=== PATIENT | female | born 1990 | race Caucasian/White ===

== ENCOUNTER 2017-04-20 16:15 | Emergency (ER) | payer BC, MEDICAID ==
--- NOTE | 2017-04-20 17:26 | PD ---
HPI Chief Complaint With urethral stone Date Seen: Apr 20, 2017 Time Seen: 17:23 Travel History International Travel<30 Days: No Contact w/Intl Traveler<30Days: No Known Affected Area: No History of Present Illness HPI 26-year-old who is at 31 weeks and 6 days comes in today because she passed a small stone about an hour ago. Patient is completely asymptomatic, no pain, no dysuria, no hematuria who about 2 hours ago after urinating wiped and saw a small stone that had been passed per urethra. 2 days ago patient experienced some mild dysuria and pelvic pressure and started on Macrobid which she had for a previous urinary tract infection this . The symptoms have now abated. Patient has no history of nephrolithiasis in the past and no family history that she knows of Weeks Gestation: 31 Para: 0 : 1 History Past Medical History Medical History: Denies Significant Hx Past Surgical History Surgical History: No Previous Surgery Family History Family History: Negative Social History Alcohol Use: No Tobacco Use: No Substance Abuse: No Allergies-Medications (Allergen,Severity, Reaction): Coded Allergies: No Known Allergies (Unverified , 10/20/16) Home Meds Active Scripts W/O Vit A W/ Fe Fumar (Citranatal [place]) 27-1-260 Mg Cap Prov:Todd Cárdenas MD 10/20/16 Review of Systems Except as stated in HPI: all other systems reviewed are Neg Physical Exam Narrative GENERAL: Well-nourished, well-developed patient. SKIN: Warm and dry. HEAD: Normocephalic and atraumatic. EYES: No scleral icterus. No injection or drainage. ENT: No nasal drainage noted. Mucous membranes pink. Airway patent. NECK: Supple, trachea midline. No JVD. CARDIOVASCULAR: Regular rate and rhythm without murmurs, gallops, or rubs. RESPIRATORY: Breath sounds equal bilaterally. No accessory muscle use. ABDOMEN/GI: Abdomen soft, non-tender, bowel sounds present, no rebound, no guarding Gravid to [32-] weeks size Fundal Height: [-] GENITOURINARY: External Genitalia: intact and normal in appearance BUS glands: [Normal-] urethra appears normal without trauma Cervix: [-] Cervical exam was deferred Dilatation: [-] Effacement: [-] Station: [-] Presentation: [-] Membranes: [intact or ruptured] Uterine Contractions: [-Absent] FHT's: Category: [-1] Baseline: [-140] Reactive: [Moderate-] Variability: [-Moderate] Decels: [Absent-] EXTREMITIES: No cyanosis or edema. BACK: Nontender without obvious deformity. No CVA tenderness. NEUROLOGICAL: Awake and alert. Motor and sensory grossly within normal limits. Five out of 5 muscle strength in all muscle groups. Normal speech. Data Data Vital Signs Reviewed: Yes Orders Orders Vital Signs (Adult) .ON ADMISSION (04/20/17 17:22) ^ Labor Status (04/20/17 17:22) Urinalysis - C+S If Indicated (04/20/17 17:22) Diet Liquid (04/20/17 Dinner) Labs Laboratory Tests Test 04/20/17 17:00 Urine Color YELLOW Urine Turbidity CLEAR Urine pH 6.0 Urine Specific [place] 1.018 Urine Protein TRACE mg/dL Urine Glucose (UA) NEG mg/dL Urine Ketones 80 mg/dL Urine Occult Blood NEG Urine Nitrite NEG Urine Bilirubin NEG Urine Urobilinogen LESS THAN 2.0 MG/DL Urine Leukocyte Esterase SMALL Urine RBC 2 /hpf Urine WBC 3 /hpf Urine Squamous Epithelial Cells 2 /hpf Urine Bacteria RARE /hpf Urine Mucus FEW /lpf Microscopic Urinalysis Comment CULT NOT INDICATED MDM Medical Record Reviewed: Yes Plan 26-year-old at 31 weeks 6 days with probable passage of a kidney stone, totally asymptomatic Urinalysis was normal patient will continue on her Macrobid for 1 additional day This stone was sent for pathology, follow-up with her OB provider as appointed tomorrow Diagnosis Diagnosis: Primary Impression: 31 weeks gestation of Additional Impressions: History of calculus of kidney during Pain in urethral meatus Disposition: 01 DISCHARGE HOME Pat East MD Apr 20, 2017 17:26
[2017-04-20 17:36] LABS: BACTERIA, URINE RARE /hpf; BLOOD, URINE NEG (NEG); COMMENT (UR) CULT NOT INDICATED; CULTURE IF INDICATED CULT NOT INDICATED; GLUCOSE,URINE NEG (NEG); KETONE, URINE 80 mg/dL (NEG); MUCUS URINE FEW /lpf (OCC); NITRITE,URINE NEG (NEG); SQUAMOUS EPITHELIAL CELL URINE 2 /hpf (0-5); URINE COLOR YELLOW (YELLW/STRAW)
== END 2017-04-20 18:30 | disposition home or self-care (01) ==
LOC: HOBED 16:15
DX: O26.893 Other specified pregnancy related conditions, third trimester (principal); R10.2 Pelvic and perineal pain; Z87.442 Personal history of urinary calculi; Z87.440 Personal history of urinary (tract) infections; Z3A.31 31 weeks gestation of pregnancy
CPT/HCPCS: 59025; 81001; 82365; 82370; 88300

== ENCOUNTER 2017-05-11 13:42 | Inpatient (IN) | payer BC, MEDICAID ==
[2017-05-11] VITALS (14 sets, daily range): BP systolic 114–165; BP diastolic 73–99; PULSE 73–169; RESP 18; TEMP 98–98.6
[~2017-05-11] VITALS: Ht 152.4 cm; Wt 86.0 kg
[2017-05-11] MEDS ORDERED: hydrALAZINE HCL 20 MG/ML VIAL IV PUSH PRN ×2 (14:45→15:15)
[2017-05-11] MEDS ORDERED: NIFEdipine 10 MG CAP PO PRN (14:45)
[2017-05-11] MEDS ORDERED: CALCIUM GLUCONATE 10% 1 GM/10 ML VIAL IV PUSH PRN (14:45)
[2017-05-11] MEDS ORDERED: ONDANSETRON HCL 4 MG/2 ML VIAL IV PUSH PRN (14:45)
[2017-05-11] MEDS ORDERED: SODIUM CHLORIDE 0.9% FLUSH 5 ML FLUSH IV FLUSH PRN (14:45)
[2017-05-11] MEDS ORDERED: ZOLPIDEM TARTRATE 5 MG TAB PO PRN (14:45)
[2017-05-11] MEDS ORDERED: NIFEdipine 10 MG CAP ONE (14:46)
[2017-05-11] MEDS ORDERED: MAGNESIUM HYDROXIDE SUSP 30 ML CUP PO PRN (15:00)
[2017-05-11] MEDS ORDERED: ALUMINUM/MAGNESIUM/SIMETH 30 ML CUP PO PRN (15:00)
--- NOTE | 2017-05-11 15:00 | HHI.HP ---
HPI Chief Complaint Hypertension measured as an outpatient, visual changes, headaches, midepigastric pain, and swelling Date Seen: May 11, 2017 Time Seen: 14:45 Travel History International Travel<30 Days: No Contact w/Intl Traveler<30Days: No Known Affected Area: No History of Present Illness HPI Patient is 26-year-old white female at 34 weeks and [address] Atkins who presents for evaluation of high blood pressure that she measured at the [facility] today was 180/117, she states she's had high blood pressure the last office visit. She has not been at bedrest. She is also had headaches and visual changes midepigastric pain over the last day or 2, she notes rather impressive swelling and feet and legs hands and face over the last several weeks , she denies pain of of contractions or leakage of fluid or bleeding. heart rate tracing is reactive and she is not leslee now Weeks Gestation: 34 Para: 0 : 1 History Social History Alcohol Use: No Tobacco Use: No Substance Abuse: No Allergies-Medications (Allergen,Severity, Reaction): Coded Allergies: No Known Allergies (Unverified , 10/20/16) Home Meds Active Scripts W/O Vit A W/ Fe Fumar (Citranatal [place]) 27-1-260 Mg Cap Prov:Todd Cárdenas MD 10/20/16 Review of Systems General / Constitutional: No: Fever, Weight Gain, Chills, Other Eyes: Blurred Vision, Visual changes, No: Diploplia, Pain, Photophobia HENT: Headaches, No: Vertigo, Lightheadedness Cardiovascular: Edema, No: Irregular Rhythm, Chest Pain or Discomfort, Palpitations, Tachycardia, Syncope, Varicosities, Cyanosis Respiratory: No: Cough, Short of Breath, Other Gastrointestinal: Nausea, Vomiting, Abdominal Pain, No: Diarrhea Genitourinary: No: Decreased Urinary Output, Oliguria Musculoskeletal: No: Limited ROM, Weakness, Cramping, Edema, Pain Skin: No Rash, No Itching, No Dryness, No Lumps, No Change in Pigmentation, No Change in Nails, No Alopecia, No Lesions Neurologic: No: Weakness, Dizziness, Syncope, Focal Abnormalities, Coordination Problem, Headache, Slurred Speech, Seizures Psychiatric: No: Depression, Suicidal Ideations, Homicidal Ideation Endocrine: No: Heat Intolerance, Cold Intolerance, Polydipsia, Polyuria, Other Physical Exam Narrative GENERAL: Well-nourished, well-developed patient. SKIN: Warm and dry. HEAD: Normocephalic and atraumatic. EYES: No scleral icterus. No injection or drainage. ENT: No nasal drainage noted. Mucous membranes pink. Airway patent. NECK: Supple, trachea midline. No JVD. CARDIOVASCULAR: Regular rate and rhythm without murmurs, gallops, or rubs. RESPIRATORY: Breath sounds equal bilaterally. No accessory muscle use. BREASTS: Bilateral exam showed no masses , no retractions, no nipple discharge. ABDOMEN/GI: Abdomen soft, non-tender, bowel sounds present, no rebound, no guarding Gravid to [-34] weeks size Fundal Height: [-34] GENITOURINARY: External Genitalia: intact and normal in appearance BUS glands: [-] Cervix: [Posterior-] Dilatation: [-0] Effacement: [0] Station: [-3] Membranes: [intact ] Uterine Contractions: [-0] FHT's: Category: [-1] Baseline: [-133] Reactive: [-yes] Variability: [-mod] Decels: [-0] EXTREMITIES: No cyanosi ,4+ edema.in preteibial area BACK: Nontender without obvious deformity. No CVA tenderness. NEUROLOGICAL: Awake and alert. Motor and sensory grossly within normal limits. Five out of 5 muscle strength in all muscle groups. Normal speech. 2+ DTRs Caprini VTE Risk Assessment Caprini VTE Risk Assessment: No/Low Risk (score <= 1) Caprini Risk Assessment Model Point Value = 1 Point Value = 2 Point Value = 3 Point Value = 5 Age 41-60 Minor surgery BMI > 25 kg/m2 Swollen legs Varicose veins or History of unexplained or recurrent spontaneous Oral contraceptives or hormone replacement Sepsis (< 1 month) Serious lung disease, including pneumonia (< 1 month) Abnormal pulmonary function Acute myocardial infarction Congestive heart failure (< 1 month) History of inflammatory bowel disease Medical patient at bed rest Age 61-74 Arthroscopic surgery Major open surgery (> 45 min) Laparoscopic surgery (> 45 min) Malignancy Confined to bed (> 72 hours) Immobilizing plaster cast Central venous access Age >= 75 History of VTE Family history of VTE Factor V Leiden Prothrombin [id number] Lupus anticoagulant Anticardiolipin antibodies Elevated serum homocysteine Heparin-induced thrombocytopenia Other congenital or acquired thrombophilia Stroke (< 1 month) Elective arthroplasty Hip, pelvis, or leg fracture Acute spinal cord injury (< 1 month) Prophylaxis Regimen Total Risk Factor Score Risk Level Prophylaxis Regimen 0-1 Low Early ambulation 2 Moderate Order ONE of the following: *Sequential Compression Device (SCD) *Heparin 5000 units SQ BID 3-4 Higher Order ONE of the following medications: *Heparin 5000 units SQ TID *Enoxaparin/Lovenox 40 mg SQ daily (WT < 150 kg, CrCl > 30 mL/min) *Enoxaparin/Lovenox 30 mg SQ daily (WT < 150 kg, CrCl > 10-29 mL/min) *Enoxaparin/Lovenox 30 mg SQ BID (WT < 150 kg, CrCl > 30 mL/min) AND/OR *Sequential Compression Device (SCD) 5 or more Highest Order ONE of the following medications: *Heparin 5000 units SQ TID (Preferred with Epidurals) *Enoxaparin/Lovenox 40 mg SQ daily (WT < 150 kg, CrCl > 30 mL/min) *Enoxaparin/Lovenox 30 mg SQ daily (WT < 150 kg, CrCl > 10-29 mL/min) *Enoxaparin/Lovenox 30 mg SQ BID (WT < 150 kg, CrCl > 30 mL/min) AND *Sequential Compression Device (SCD) Data Data Orders Orders Nifedipine (Procardia) (05/11/17 14:46) Admit To Inpatient (05/11/17 ) Vital Signs (Adult) Q5MX4,Q15MX4,Q30MX2,Q1H (05/11/17 14:42) Resp Pulse Oximetry (05/11/17 ) Activity Bed Rest (05/11/17 14:42) Intake + Output Q1H (05/11/17 14:42) Notify Parameters (05/11/17 14:42) Heart CONTINUOUS (05/11/17 14:42) Urinary Catheter Management JERO.Q8H (05/11/17 14:42) ^ Check Deep Tendon Reflexes Q1H (05/11/17 14:42) Sodium Chloride 0.9% Flush (Ns Flush) (05/11/17 14:45) Sodium Chloride 0.9% Flush (Ns Flush) (05/11/17 21:00) Nifedipine (Procardia) (05/11/17 14:45) Hydralazine Inj (Apresoline Inj) (05/11/17 14:45) Hydralazine Inj (Apresoline Inj) (05/11/17 15:15) Betamethasone Inj (Celestone Soluspan In (05/11/17 14:45) Calcium Gluconate Inj (Calcium Gluconate (05/11/17 14:45) Acetaminophen (Tylenol) (05/11/17 14:45) Ondansetron Inj (Zofran Inj) (05/11/17 14:45) Docusate Sodium (Colace) (05/11/17 14:45) Kiscpkrn-Pcs-Nsvmu-Iron Prenat (Stuartna (05/12/17 09:00) Zolpidem (Ambien) (05/11/17 14:45) Cbc No Diff, Includes Plts (05/11/17 14:42) Comprehensive Metabolic Panel (05/11/17 14:42) Uric Acid (05/11/17 14:42) Urinalysis - C+S If Indicated (05/11/17 14:42) Total Protein 24hr Urine (05/11/17 14:42) Creatinine 24 Hr Urine (05/11/17 14:42) Us Ob Bpp Wo Nst (05/11/17 14:42) Al-Mag Hy-Si 40-40-4 Mg/Ml Liq (Mag-Al P (05/11/17 15:00) Magnesium Hydroxide Liq (Milk Of Magnesi (05/11/17 15:00) Labs Urine dipstick showed 2-3+ proteinuria otherwise was negative Assessment/Plan Assessment and Plan 26-year-old white female at 35 weeks tomorrow [address] Dr. Atkins for care at [facility] who presents noting a blood pressure done at outside hospital [facility] of 180/117, she is also had the recent headache visual changes increase in her swelling and developed midepigastric pain she describes as a tightness. Her blood pressure in OB ED is 150 / 90s and 150/100 she has a reactive NST no contractions. She has 4+ pitting edema in the pretibial area, 2- 3+ proteinuria on urine dipstick , she describes visual changes sparkles and lights in her eyes recently also a persistent headache, and she probably try in the midepigastrium and epigastric area where she has this tightness pain Meuiaegodp-fiw-ekmqsusxs 34-35 weeks plan-admission the hospital, 24-hour urine protein collection check PIH lab, obstetric ultrasound, treat hypertension as needed, will notify Dr. Atkins of the patient's arrival Max Mosley II, MD May 11, 2017 15:00
[2017-05-11 16:03] LABS: BACTERIA, URINE RARE /hpf; BLOOD, URINE NEG (NEG); COMMENT (UR) CULT NOT INDICATED; CULTURE IF INDICATED CULT NOT INDICATED; GLUCOSE,URINE NEG (NEG); KETONE, URINE NEG (NEG); MUCUS URINE FEW /lpf (OCC); NITRITE,URINE NEG (NEG); SQUAMOUS EPITHELIAL CELL URINE 7 /hpf (0-5); URINE COLOR YELLOW (YELLW/STRAW)
[2017-05-11 16:40] LABS: HEMATOCRIT 36.3 % (35.0-46.0); MEAN CELL VOLUME 90.1 FL (80.0-100.0); MEAN CORPUSCULAR HEMOGLOBIN 30.5 PG (27.0-34.0); MEAN CORPUSCULAR HGB CONC 33.9 % (32.0-36.0); PLATELET COUNT 152 TH/MM3 (150-450); RED BLOOD COUNT 4.03 MIL/MM3 (4.00-5.30); RED CELL DISTRIBUTION WIDTH 12.7 % (11.6-17.2); REVIEW FLAG FINAL; WHITE BLOOD COUNT 8.9 TH/MM3 (4.0-11.0)
--- NOTE | 2017-05-11 16:58 | PD.OB.ANTE ---
Subjective Diagnosis: (1) induced hypertension, antepartum Diagnosis: Principal (2) Edema Diagnosis: Principal Interval History Pt feeling slightly better since admission, IVF hydration; headache mild, no vision changes, no RUQ pain, no nausea. Persistent b/l LE edema developed over past week. No contractions, feeling baby move, no LOF or VB. Pain 1/10 dull frontal headache. Antepartum ROS: Reports: movement normal, Denies: New complaints, Loss of fluid, Vaginal bleeding, Contractions, Other Objective Vital Signs Vital Signs Date Time Temp Pulse Resp B/P (MAP) Pulse Ox O2 Delivery O2 Flow Rate FiO2 05/11/17 15:47 91 142/88 (106) 05/11/17 14:44 73 165/92 (116) 05/11/17 14:42 78 164/99 (120) Lab & Micro Results Test 05/11/17 14:28 05/11/17 15:50 Urine Color YELLOW Urine Turbidity HAZY Urine pH 7.0 Urine Specific [place] 1.017 Urine Protein 100 mg/dL Urine Glucose (UA) NEG mg/dL Urine Ketones NEG mg/dL Urine Occult Blood NEG Urine Nitrite NEG Urine Bilirubin NEG Urine Urobilinogen LESS THAN 2.0 MG/DL Urine Leukocyte Esterase SMALL Urine RBC 2 /hpf Urine WBC 3 /hpf Urine Squamous Epithelial Cells 7 /hpf Urine Bacteria RARE /hpf Urine Mucus FEW /lpf Microscopic Urinalysis Comment CULT NOT INDICATED White Blood Count 8.9 TH/MM3 Red Blood Count 4.03 MIL/MM3 Hemoglobin 12.3 GM/DL Hematocrit 36.3 % Mean Corpuscular Volume 90.1 FL Mean Corpuscular Hemoglobin 30.5 PG Mean Corpuscular Hemoglobin Concent 33.9 % Red Cell Distribution Width 12.7 % Platelet Count 152 TH/MM3 Mean Platelet Volume 8.7 FL Physical Exam GENERAL: Well-nourished, well-developed patient. Puffy face. Pleasant, sitting up in bed. CARDIOVASCULAR: Regular rate and rhythm without murmurs, gallops, or rubs. RESPIRATORY: Breath sounds equal bilaterally. No accessory muscle use. ABDOMEN/GI: Abdomen soft, non-tender. Fundus: [c/w dates] GENITOURINARY: External Genitalia: deferred; closed on SVE per Dr. Mosley a few hours ago FHT's: Category: [I] Baseline: [150s] Reactive: [y] Variability: [y] Decels: [n] EXTREMITIES: No cyanosis, non-tender, without signs of DVT. 4+ edema b/l LE to shins Assessment and Plan Problem List: (1) induced hypertension, antepartum ICD Codes: O13.9 - Gestational [-induced] hypertension without significant proteinuria, unspecified trimester Status: Acute (2) Edema ICD Codes: R60.9 - Edema, unspecified Status: Acute Assessment and Plan 26 yo G1 with schmitt IUP at 35w6d admit for elevated BP, proteinuria, headache, LE edema 1) PIH: 24h urine started, PIH labs ordered & pending; BP not severe range and pt w mild CAO currently, more GERD than RUQ pain, no nausea; edema is 4+ to shins b/l; d/w pt if symptoms or pressures worsen and PreEclampsia confirmed would recommend labor induction; betamethasone ordered; not meeting criteria for magnesium sulfate currently 2) status: Cat I tracing, 03/10 BPP, EFW 5#15oz, vtx, post placenta; continuous monitoring at this time 3) dispo: not meeting criteria, anticipate may need induction overnight or tmrw if symptoms or pressures become severe More Atkins MD May 11, 2017 16:58
[2017-05-11 17:00] LABS: ALT (GPT) 18 U/L (10-53); ANION GAP 10 MEQ/L (5-15); AST (GOT) 23 U/L (15-37); BICARBONATE 21.7 MEQ/L (21.0-32.0); BLOOD UREA NITROGEN 12 MG/DL (7-18); CHLORIDE 107 MEQ/L (98-107); GLOMERULAR FILTRATION RATE 163 ML/MIN (>89); POTASSIUM 3.8 MEQ/L (3.5-5.1); SODIUM (NA) 139 MEQ/L (136-145); URIC ACID 5.8 MG/DL (2.6-6.0)
[2017-05-11 17:03] LABS: ALKALINE PHOSPHATASE 139 U/L (45-117); TOTAL BILIRUBIN ADULT 0.2 MG/DL (0.2-1.0)
[2017-05-11] MEDS: BETAMETHASONE SOD PHOS/ACETATE SUSP 30 MG/5 ML VIAL IM SCH (17:20)
[2017-05-11] MEDS: ACETAMINOPHEN 325 MG TAB PO PRN ×2 (17:22→21:26)
[2017-05-11] MEDS: FAMOTIDINE 20 MG TAB PO SCH ×2 (18:11→21:26)
[2017-05-11] MEDS: SODIUM CHLORIDE 0.9% FLUSH 5 ML FLUSH IV FLUSH SCH (21:00)
[2017-05-12] VITALS (67 sets, daily range): BP systolic 108–166; BP diastolic 45–91; PULSE 73–112; RESP 16–20; TEMP 97.7–98.2; O2SAT 93–97
--- NOTE | 2017-05-12 07:59 | PD.OB.ANTE ---
Subjective Diagnosis: (1) induced hypertension, antepartum Diagnosis: Principal (2) Edema Diagnosis: Principal Interval History Doing better this AM after sleeping overnight; headache very mild, almost resolved; edema no longer pitting, feeling good FM, denies LOF or VB, no nausea , no RUQ pain, able to tolerate dinner last PM Antepartum ROS: Reports: movement normal, Denies: New complaints, Loss of fluid, Vaginal bleeding, Contractions, Other Objective Vital Signs Vital Signs Date Time Temp Pulse Resp B/P (MAP) Pulse Ox O2 Delivery O2 Flow Rate FiO2 05/12/17 06:01 84 18 108/45 (66) 05/12/17 05:30 18 05/12/17 03:30 18 05/12/17 02:29 18 05/12/17 02:00 107 129/74 (92) 05/12/17 01:01 100 132/84 (100) 05/12/17 00:30 18 05/12/17 00:01 79 121/73 (89) 05/11/17 23:30 18 05/11/17 23:01 86 152/83 (106) 05/11/17 22:30 18 05/11/17 22:30 18 05/11/17 22:01 75 134/73 (93) 05/11/17 21:30 18 05/11/17 21:02 169 114/83 (93) 05/11/17 20:34 88 138/88 (105) 05/11/17 20:30 18 05/11/17 20:30 98.0 05/11/17 18:30 82 151/92 (111) 05/11/17 17:25 97 136/93 (107) 05/11/17 16:00 98.6 18 05/11/17 15:47 91 142/88 (106) 05/11/17 14:44 73 165/92 (116) 05/11/17 14:42 78 164/99 (120) Lab & Micro Results Test 05/11/17 14:28 05/11/17 15:50 05/11/17 21:40 Urine Color YELLOW Urine Turbidity HAZY Urine pH 7.0 Urine Specific [place] 1.017 Urine Protein 100 mg/dL Urine Glucose (UA) NEG mg/dL Urine Ketones NEG mg/dL Urine Occult Blood NEG Urine Nitrite NEG Urine Bilirubin NEG Urine Urobilinogen LESS THAN 2.0 MG/DL Urine Leukocyte Esterase SMALL Urine RBC 2 /hpf Urine WBC 3 /hpf Urine Squamous Epithelial Cells 7 /hpf Urine Bacteria RARE /hpf Urine Mucus FEW /lpf Microscopic Urinalysis Comment CULT NOT INDICATED White Blood Count 8.9 TH/MM3 Red Blood Count 4.03 MIL/MM3 Hemoglobin 12.3 GM/DL Hematocrit 36.3 % Mean Corpuscular Volume 90.1 FL Mean Corpuscular Hemoglobin 30.5 PG Mean Corpuscular Hemoglobin Concent 33.9 % Red Cell Distribution Width 12.7 % Platelet Count 152 TH/MM3 Mean Platelet Volume 8.7 FL Blood Urea Nitrogen 12 MG/DL Creatinine 0.47 MG/DL Random Glucose 75 MG/DL Total Protein 6.0 GM/DL Albumin 2.5 GM/DL Calcium Level 8.8 MG/DL Uric Acid 5.8 MG/DL Alkaline Phosphatase 139 U/L Aspartate Amino Transf (AST/SGOT) 23 U/L Alanine Aminotransferase (ALT/SGPT) 18 U/L Total Bilirubin 0.2 MG/DL Sodium Level 139 MEQ/L Potassium Level 3.8 MEQ/L Chloride Level 107 MEQ/L Carbon Dioxide Level 21.7 MEQ/L Anion Gap 10 MEQ/L Estimat Glomerular Filtration Rate 163 ML/MIN Lab Scanned Report Lab Reports - Other [id number] Physical Exam GENERAL: Well-nourished, well-developed patient. Still looks a little puffy in her face but improved compared to last PM CARDIOVASCULAR: Regular rate and rhythm without murmurs, gallops, or rubs. RESPIRATORY: Breath sounds equal bilaterally. No accessory muscle use. ABDOMEN/GI: Abdomen soft, non-tender. Fundus: [c/w dates] GENITOURINARY: External Genitalia: deferred FHT's: Category:I, FHTs 150s +acels no decels +variability EXTREMITIES: No cyanosis, non-tender, without signs of DVT. Edema 2+ to b/l shins but no longer tense or pitting Assessment and Plan Problem List: (1) induced hypertension, antepartum ICD Codes: O13.9 - Gestational [-induced] hypertension without significant proteinuria, unspecified trimester Status: Acute (2) Edema ICD Codes: R60.9 - Edema, unspecified Status: Acute Assessment and Plan 26 yo G1 with schmitt IUP admitted 10/9/17 at 35w6d for elevated BP, proteinuria, headache, LE edema on 05/12/17 now 36w0d 1) PIH: 24h urine started, PIH labs ; BP not severe range, edema improved on bedrest; d/w pt if symptoms or pressures worsen and PreEclampsia confirmed would recommend labor induction; betamethasone ordered; not meeting criteria for magnesium sulfate currently, not meeting criteria for induction currently; continue to monitor closely 2) status: Cat I tracing, 03/10 BPP on 05/11/17, EFW 5#15oz, vtx, post placenta 3) dispo: not meeting criteria More Atkins MD May 12, 2017 07:59
[2017-05-12] MEDS ORDERED: MULTIVIT/MIN/PREN/FOL AC/IRON PRENATAL TAB PO SCH (09:00)
[2017-05-12] MEDS: SODIUM CHLORIDE 0.9% FLUSH 5 ML FLUSH IV FLUSH SCH ×2 (09:00→21:00)
[2017-05-12] MEDS: ACETAMINOPHEN 325 MG TAB PO PRN ×2 (09:21→16:09)
[2017-05-12] MEDS ORDERED: MAGNESIUM SULFATE 40 GM PREMIX 1,000 ML ONE (12:16)
[2017-05-12] MEDS ORDERED: MAGNESIUM SULFATE 4 GM PREMIX 100 ML ONE (12:16)
[2017-05-12] MEDS ORDERED: DINOPROSTONE 10 MG VAG INSERT VAGINAL ONE (13:00)
[2017-05-12] MEDS ORDERED: MAGNESIUM SULFATE 4 GM PREMIX 100 ML IV ONE (13:00)
[2017-05-12] MEDS ORDERED: LACTATED RINGER'S 1000 ML INJ 1,000 ML IV SCH ×2 (13:00→18:25)
[2017-05-12] MEDS: MAGNESIUM SULFATE 40 GM PREMIX 1,000 ML IV SCH (13:04)
[2017-05-12] MEDS ORDERED: SODIUM CHLOR 0.9% 1000 ML INJ 1,000 ML OTHER PRN (13:30)
--- NOTE | 2017-05-12 13:43 | HHI.PR ---
[employer]ERCIAL [employer]CTION SUPERINTENDENT Note Note Called by nurse to assess pt as she had new symptoms, blurry vision and clonus on exam. Nurse had checked reflexes and for clonus earlier in day and exam was normal. Exam repeated, and clonus noted bilaterally. Edema to sacral spine. Lung chanel clear, CV rrr. Pt moved to labor room, magnesium started, and induction will begin with cervidil. New pih labs ordered stat. discussed with pt that she is showing signs of severe pre-eclampsia so induction is indicated and mag will be given to prevent seizures. Discussed she will receive next bms this evening. Discussed that induction is prolonged process and she may not deliver until later tomorrow. Possibility of CD reviewed. Ritika Jimenez MD May 12, 2017 13:43
[2017-05-12 13:53] LABS: AUTOMATED NEUTROPHIL # 11.9 TH/MM3 (1.8-7.7); BASOPHIL % 0.1 % (0.0-2.0); HEMO FLAGS DIFF FINAL; LYMPH % 6.9 % (9.0-44.0); LYMPHOCYTE # 0.9 TH/MM3 (1.0-4.8); MEAN CELL VOLUME 89.9 FL (80.0-100.0); MEAN CORPUSCULAR HGB CONC 33.4 % (32.0-36.0); PLATELET COUNT 181 TH/MM3 (150-450); RED BLOOD COUNT 4.01 MIL/MM3 (4.00-5.30); RED CELL DISTRIBUTION WIDTH 12.9 % (11.6-17.2); WHITE BLOOD COUNT 13.6 TH/MM3 (4.0-11.0)
[2017-05-12 14:11] LABS: ALT (GPT) 19 U/L (10-53); ANION GAP 13 MEQ/L (5-15); AST (GOT) 20 U/L (15-37); BICARBONATE 19.1 MEQ/L (21.0-32.0); BLOOD UREA NITROGEN 11 MG/DL (7-18); CHLORIDE 106 MEQ/L (98-107); GLOMERULAR FILTRATION RATE 103 ML/MIN (>89); POTASSIUM 3.6 MEQ/L (3.5-5.1); SODIUM (NA) 138 MEQ/L (136-145); URIC ACID 6.8 MG/DL (2.6-6.0)
[2017-05-12 14:13] LABS: ALKALINE PHOSPHATASE 140 U/L (45-117); TOTAL BILIRUBIN ADULT 0.2 MG/DL (0.2-1.0)
[2017-05-12] MEDS: BETAMETHASONE SOD PHOS/ACETATE SUSP 30 MG/5 ML VIAL IM SCH (14:45)
[2017-05-12 17:03] LABS: URINE TOTAL PROTEIN TIMED 53.5 MG/DL
[2017-05-12 17:31] LABS: CREAT 24 TIMED 44.9 MG/DL
[2017-05-12] MEDS ORDERED: BETAMETHASONE SOD PHOS/ACETATE SUSP 30 MG/5 ML VIAL IM ONE (17:45)
[2017-05-12] MEDS ORDERED: CITRIC ACID-SODIUM CITRATE LIQ 30 ML UDC ONE (17:53)
[2017-05-12] MEDS ORDERED: LACTATED RINGER'S 1000 ML INJ 1,000 ML IV ONE (17:55)
--- NOTE | 2017-05-12 18:04 | HHI.PR ---
SUPERVISOR AUDIT CLERKS Note Note Called by nurse with pt complaints of severe headache. New symptom, unresolved with tylenol. She has had mild range bp on magnesium. She just received second dose of bms. She continues to have clonus bilaterally; no visual symptoms. Discussed with pt that she is remote from delivery and continues to show more symptoms of severity, recommended to pt and family to proceed with cd. Family is in agreement. r/b/a discussed, postop care and recovery reviewed. Ritika Jimenez MD May 12, 2017 18:04
[2017-05-12] MEDS ORDERED: ceFAZolin 2 GM PREMIX 50 ML IV SCH (19:00)
[2017-05-12] MEDS ORDERED: CITRIC ACID-SODIUM CITRATE LIQ 30 ML UDC PO SCH (19:30)
--- NOTE | 2017-05-12 19:58 | PD.OB.DELI ---
Procedure Note Section Procedure Pre Op Diagnosis: (1) Severe pre-eclampsia Post Op Diagnosis: (1) Severe pre-eclampsia Performed by Ritika Jimenez Procedure: Primary Low Transverse Sec Indication for delivery: Maternal medical problems Previous condition: None Informed consent obtained: For anesthesia, For procedure Confirmed correct: Patient, Procedure, Site, Time-out taken Anesthesia: Spinal Medication prior to procedure: As documented in eMAR Monitoring during procedure: Blood pressure monitoring, Pulse oximetry Urinary catheter: Inserted using sterile technique, To dependent drainage, ml urine output (200) Sterile preparation: With 2% chlorexidine (Hibiclens) Position: Supine with wedge to right side, Supine with safety belt applied Operative Features Skin Incision: Pfannenstiel Uterine Incision: Low transverse w/knife / blunt ext Membranes Ruptured: Artificially, Amount of liquid (mod), Appearance of fluid ( clear) Presentation: Occiput anterior Delivery date: May 12, 2017 Delivery time: 18:54 Delivery of : Uneventful Infant: Male One Minute : 8 Five Minute : 9 Weight: 2540g Status of : Viable, Cord blood, Nursery present, Resuscitation required ( cpap) Placenta delivered: Intact, Sent to pathology Medications: Antibiotics, Oxytocin, Other (labetalol 10mg iv x 1) Estimated blood loss: 600ml Procedure tolerated: Well Maternal Condition: Stable Condition: Fair Procedure in detail dictation Ritika Jimenez MD May 12, 2017 19:58
[2017-05-12] MEDS ORDERED: ACETAMINOPHEN 1000 MG/100 ML 100 ML IV ONE (20:00)
[2017-05-12] MEDS ORDERED: OXYTOCIN 30 UNITS-500ML PREMIX 500 ML IV ONE (20:00)
[2017-05-12] MEDS ORDERED: OXYTOCIN 30 UNITS-500ML PREMIX 500 ML ONE (20:36)
--- NOTE | 2017-05-12 23:27 | MP ---
cc: RITIKA JIMENEZ MD DATE OF SURGERY 05/12/17 PREOPERATIVE DIAGNOSIS Severe preeclampsia and intrauterine at 35 weeks. POSTOPERATIVE DIAGNOSIS Severe preeclampsia and intrauterine at 35 weeks. PROCEDURE Primary low transverse section INDICATION The patient is a with intrauterine at 35 weeks who presented to triage with complaints of headaches, possible epigastric pain and noted to have an elevated blood pressure, 180s/one teens. She was admitted for preeclampsia workup. On bedrest, her blood pressures did return to normal in mild range. While her 24-hour urine was in progress, she started to develop some blurry vision and clonus was identified. At that point, she was started on magnesium and induction was started with Cervidil. Her blurry vision did resolve, but she subsequently developed a severe headache. Given that her symptoms continued to progress and she was remote from delivery, decision was made to proceed with a primary delivery. Discussed with the patient and the family and they were in agreement with the plan of care. SURGEON Tomasz Jimenez MD INSTALLER TECHNICIAN [place] staff ANESTHESIA Spinal. ESTIMATED BLOOD LOSS 600 mL IV FLUIDS 8100 of lactated ringer. URINE OUTPUT 200 ml of clear yellow urine at the end of the case PROPHYLACTIC ANTIBIOTIC Ancef 50 grams IV given pre-incision. DVT prophylaxis SCDs bilateral extremities COMPLICATIONS None. COUNTS Correct x3 SPECIMEN Cord blood and placenta to pathology. INTRAOPERATIVE FINDINGS Viable male infant Apgars of eight and 9 at 1 and 5-minutes. Baby subsequently did need C-PAP and was taken to NICU. weight was 2540 grams. Placenta was intact. Three-vessel cord, uterus, tubes and ovaries within normal limits. DISPOSITION To PACU in stable condition. PROCEDURE IN DETAIL After review of informed consent, the patient was taken to the operating room where spinal anesthesia was administered. A Penny was placed under sterile conditions. The abdomen was prepped and draped in normal sterile fashion. A Pfannenstiel skin incision was made with a scalpel and carried down to underlying layer of fascia with the Bovie. The fascia was incised in the midline. Marcelo clamps were placed on the superior aspect of the fascia, elevated to dissect the rectus muscles off both bluntly and sharply. The same was repaired inferiorly. The rectus muscles were in the midline with the hemostat. The peritoneum was entered sharply after tenting with hemostats. This incision was extended bluntly. The bladder blade was inserted. Bladder flap was created with Metzenbaum scissors and further developed digitally. A low transverse uterine incision was made with a scalpel and this was bluntly extended. The amnion was ruptured. The head was flexed and fundal pressure was used to deliver the fetus. Delayed cord clamping was performed per nursery team request. The cord was doubly clamped and cut after 45 seconds. Cord blood was collected and then placenta was delivered gentle cord traction and uterine massage. The uterus was exteriorized, cleared of all clots and debris with a moist laparotomy sponge. The uterus was repaired in two layers with #1 chromic in a running lock fashion followed by an imbricating layer. The posterior cul-de-sac was irrigated and suctioned. The uterus was inspected and noted to be hemostatic. The uterus was returned to the abdomen. Anterior cul-de-sac was irrigated and suctioned. Hysterotomy appeared intact with good hemostasis. The fascia was closed with #1 Vicryl in a running lock fashion. The subcutaneous tissue was irrigated and suctioned. Hemostasis was obtained with the Bovie. The subcutaneous tissue was brought together with 2-0 chromic in a running fashion. The skin was closed with 4-0 Monocryl in a subcuticular fashion. Of note. after procedure the skin did appear erythematous prior to placement of Steri-Strips. The patient has no known allergies. We will continue to monitor. A sterile dressing was placed. She was taken to PACU in stable condition. She is an acceptable candidate for a trial of labor after delivery. Ritika Jimenez MD PE/ /7:59 PM /11:13 PM
[2017-05-13] VITALS (13 sets, daily range): BP systolic 132–142; BP diastolic 72–90; PULSE 68–87; RESP 18; TEMP 98–98.3
[2017-05-13 05:52] LABS: HEMATOCRIT 35.4 % (35.0-46.0); MEAN CELL VOLUME 91.4 FL (80.0-100.0); MEAN CORPUSCULAR HEMOGLOBIN 30.1 PG (27.0-34.0); PLATELET COUNT 183 TH/MM3 (150-450); RED BLOOD COUNT 3.87 MIL/MM3 (4.00-5.30); REVIEW FLAG FINAL; WHITE BLOOD COUNT 18.7 TH/MM3 (4.0-11.0)
[2017-05-13] MEDS ORDERED: OXYTOCIN 30 UNITS-500ML PREMIX 500 ML IV PRN (06:00)
[2017-05-13 06:43] LABS: BICARBONATE 20.6 MEQ/L (21.0-32.0); CALCIUM-PROTEIN CORRECTED 8.2 MG/DL (8.5-10.1); POTASSIUM 3.9 MEQ/L (3.5-5.1); TOTAL BILIRUBIN ADULT 0.2 MG/DL (0.2-1.0); URIC ACID 6.3 MG/DL (2.6-6.0)
[2017-05-13] MEDS: IBUPROFEN 600 MG TAB PO PRN ×2 (07:16→17:26)
[2017-05-13] MEDS: SODIUM CHLORIDE 0.9% FLUSH 5 ML FLUSH IV FLUSH SCH (08:00)
[2017-05-13] MEDS: MAGNESIUM SULFATE 40 GM PREMIX 1,000 ML IV SCH (09:39)
--- NOTE | 2017-05-13 10:33 | HHI.OB ---
Subjective Post Operative Day: 1 Remarks POD#1, s/p LTCS, Preeclampsia with severe features, currently on mag. BPR 140/90's. denies H/A, BV, N/V Objective Vitals/I&O Vital Signs Date Time Temp Pulse Resp B/P (MAP) Pulse Ox O2 Delivery O2 Flow Rate FiO2 05/13/17 07:00 75 142/88 (106) 05/13/17 06:00 70 133/80 (97) 05/13/17 05:00 82 141/85 (103) 05/13/17 04:00 78 136/79 (98) 05/13/17 02:00 73 132/84 (100) 05/13/17 00:00 85 141/90 (107) 05/12/17 23:00 85 146/87 (106) 05/12/17 22:00 82 144/78 (100) 05/12/17 21:56 77 143/80 (101) 05/12/17 21:00 96 05/12/17 21:00 73 18 143/84 (103) 05/12/17 21:00 97.7 05/12/17 20:15 124/60 (81) 05/12/17 20:15 91 20 97 05/12/17 19:45 134/66 (88) 05/12/17 19:45 82 16 93 05/12/17 19:45 98.2 05/12/17 17:15 18 05/12/17 17:10 85 05/12/17 17:05 89 05/12/17 17:01 92 146/84 (104) 05/12/17 16:55 89 05/12/17 16:50 89 05/12/17 16:45 85 05/12/17 16:11 98.0 18 05/12/17 16:10 89 05/12/17 16:05 88 05/12/17 16:00 85 150/89 (109) 05/12/17 15:55 90 05/12/17 15:50 88 05/12/17 15:45 86 05/12/17 15:40 95 05/12/17 15:35 91 05/12/17 15:30 92 05/12/17 15:05 87 05/12/17 15:01 88 124/68 (86) 05/12/17 15:00 89 05/12/17 14:55 88 05/12/17 14:45 86 05/12/17 14:30 17 05/12/17 14:25 97 05/12/17 14:20 85 05/12/17 14:15 91 133/70 (91) 05/12/17 14:15 92 05/12/17 14:10 91 05/12/17 14:05 89 05/12/17 14:00 103 05/12/17 14:00 95 129/68 (88) 05/12/17 13:55 95 05/12/17 13:45 129/69 (89) 05/12/17 13:45 93 05/12/17 13:40 98 05/12/17 13:35 93 05/12/17 13:30 135/77 (96) 05/12/17 13:30 95 05/12/17 13:28 97.8 05/12/17 13:27 90 128/67 (87) 05/12/17 13:26 17 05/12/17 13:25 94 05/12/17 13:25 96 05/12/17 13:25 133/78 (96) 05/12/17 13:20 112 05/12/17 13:20 99 152/90 (110) 05/12/17 13:15 101 132/77 (95) 05/12/17 13:15 98 05/12/17 13:05 133/76 (95) 05/12/17 13:05 93 05/12/17 13:00 90 05/12/17 12:57 18 05/12/17 12:55 139/81 (100) 05/12/17 12:55 89 05/12/17 12:50 88 05/12/17 12:50 133/75 (94) 05/12/17 12:45 147/86 (106) 05/12/17 12:45 87 05/12/17 12:40 94 143/86 (105) 05/12/17 12:40 88 05/12/17 12:37 91 05/12/17 12:37 166/90 (115) 05/12/17 12:35 91 05/12/17 12:34 91 157/91 (113) 05/12/17 11:00 101 134/87 (103) Result Diagram: 05/13/1751105/13/17511 Objective Remarks GENERAL: Well-nourished, well-developed patient. CARDIOVASCULAR: Regular rate and rhythm without murmurs, gallops, or rubs. RESPIRATORY: Breath sounds equal bilaterally. No accessory muscle use. ABDOMEN/GI: Abdomen soft, non-tender, bowel sounds present. Incision: Clean, dry and intact. Fundus: Firm, non-tender at umbilicus. GENITOURINARY: Light to moderate bleeding. EXTREMITIES: No cyanosis or edema, non-tender, without signs of DVT. Medications and IVs Current Medications Medications (Trade) Dose Ordered Sig/Rafi Route Start Time Stop Time Status Last Admin (NS Flush) 2 ml UNSCH PRN IV FLUSH 05/11/17 14:45 (NS Flush) 2 ml BID IV FLUSH 05/11/17 21:00 05/12/17 09:00 (Calcium Gluconate Inj) 1 gm UNSCH PRN IV PUSH 05/11/17 14:45 (Tylenol) 650 mg Q4H PRN PO 05/11/17 14:45 05/12/17 16:09 (Zofran Inj) 4 mg Q6H PRN IV PUSH 05/11/17 14:45 (Colace) 100 mg BID PRN PO 05/11/17 14:45 (Ambien) 5 mg HS PRN PO 05/11/17 14:45 05/11/17 21:26 (Mag-Al Plus Susp Liq) 30 ml Q6H PRN PO 05/11/17 15:00 Magnesium Sulfate 1,000 ml @ 50 mls/hr Q20H IV 05/12/17 13:00 05/13/17 09:39 Oxytocin 500 ml @ 100 mls/hr UNSCH X1 PRN IV 05/13/17 06:00 05/14/17 05:59 05/12/17 22:01 (Mylicon Chew) 80 mg QID PRN PO 05/12/17 20:00 (Motrin) 600 mg Q6H PRN PO 05/12/17 20:00 05/13/17 07:16 (Percocet 5-325 Mg) 1 tab Q4H PRN PO 05/12/17 20:00 (Percocet 5-325 Mg) 2 tab Q4H PRN PO 05/12/17 20:00 (M-M-R Ii Inj) 0.5 ml ONCE ONCE SQ 05/13/17 16:00 05/13/17 16:01 (Boostrix Inj) 0.5 ml ONCE ONCE IM 05/13/17 16:00 05/13/17 16:01 Assessment/Plan Problem List: (1) induced hypertension, antepartum ICD Codes: O13.9 - Gestational [-induced] hypertension without significant proteinuria, unspecified trimester Status: Acute (2) Edema ICD Codes: R60.9 - Edema, unspecified Status: Acute Assessment and Plan POD#1, s/p cd, preeclampsia on Mag., feeling better, no H/A, visual disturbance. Will turn off mag.sulfate @ 13:00, advance diet. Discharge Planning Does not meet criteria Attending Attestation seen by Laci Beckham MD May 13, 2017 10:33
[2017-05-13] MEDS: oxyCODONE/ACETAMINOPHEN 5 MG/325 MG TAB PO PRN ×3 (11:31→21:58)
[2017-05-13] MEDS: LABETALOL HCL 100 MG TAB PO SCH ×2 (12:23→21:54)
[2017-05-13] MEDS ORDERED: MEASLES, MUMPS, RUBELLA VACCINE 0.5 ML VIAL SQ ONE (16:00)
[2017-05-13] MEDS ORDERED: DIPHTH/TETANUS/ACEL PERTUSSIS (BOOSTER) 0.5 ML VIAL/PFS IM ONE (16:00)
[2017-05-14] VITALS (7 sets, daily range): BP systolic 123–144; BP diastolic 80–88; PULSE 70–98; RESP 16–17; TEMP 98.1–100
[2017-05-14] MEDS: IBUPROFEN 600 MG TAB PO PRN ×4 (04:35→23:54)
[2017-05-14] MEDS: oxyCODONE/ACETAMINOPHEN 5 MG/325 MG TAB PO PRN ×5 (04:35→22:42)
[2017-05-14] MEDS: DOCUSATE SODIUM 100 MG CAP PO PRN (06:46)
--- NOTE | 2017-05-14 08:35 | HHI.OB ---
Subjective Post Operative Day: 2 Remarks T 100, no engorgement, +flatus, ambulated yesterday Objective Vitals/I&O Vital Signs Date Time Temp Pulse Resp B/P (MAP) Pulse Ox O2 Delivery O2 Flow Rate FiO2 05/14/17 05:30 98.2 88 16 130/81 (97) 05/14/17 02:00 98.3 93 16 129/80 (96) 05/14/17 01:40 98.3 16 05/14/17 01:40 93 129/80 (96) 05/13/17 21:50 68 133/81 (98) 05/13/17 21:50 98.3 18 05/13/17 17:50 98.2 05/13/17 17:21 76 135/72 (93) 05/13/17 15:00 87 137/78 (97) 05/13/17 14:08 85 134/76 (95) 05/13/17 14:00 84 05/13/17 11:22 18 05/13/17 11:22 98.0 Result Diagram: 05/13/1751105/13/17511 Objective Remarks GENERAL: Well-nourished, well-developed patient. CARDIOVASCULAR: Regular rate and rhythm without murmurs, gallops, or rubs. RESPIRATORY: Breath sounds equal bilaterally. No accessory muscle use. ABDOMEN/GI: Abdomen soft, non-tender, bowel sounds present. Incision: Clean, dry and intact. Fundus: Firm, non-tender at umbilicus. GENITOURINARY: Light to moderate bleeding. EXTREMITIES: No cyanosis or edema, non-tender, without signs of DVT. Medications and IVs Current Medications Medications (Trade) Dose Ordered Sig/Rafi Route Start Time Stop Time Status Last Admin (NS Flush) 2 ml UNSCH PRN IV FLUSH 05/11/17 14:45 (NS Flush) 2 ml BID IV FLUSH 05/11/17 21:00 05/12/17 09:00 (Calcium Gluconate Inj) 1 gm UNSCH PRN IV PUSH 05/11/17 14:45 (Tylenol) 650 mg Q4H PRN PO 05/11/17 14:45 05/12/17 16:09 (Zofran Inj) 4 mg Q6H PRN IV PUSH 05/11/17 14:45 (Colace) 100 mg BID PRN PO 05/11/17 14:45 05/14/17 06:46 (Ambien) 5 mg HS PRN PO 05/11/17 14:45 05/11/17 21:26 (Mag-Al Plus Susp Liq) 30 ml Q6H PRN PO 05/11/17 15:00 (Mylicon Chew) 80 mg QID PRN PO 05/12/17 20:00 (Motrin) 600 mg Q6H PRN PO 05/12/17 20:00 05/14/17 04:35 (Percocet 5-325 Mg) 1 tab Q4H PRN PO 05/12/17 20:00 05/13/17 17:26 (Percocet 5-325 Mg) 2 tab Q4H PRN PO 05/12/17 20:00 05/14/17 04:35 (Trandate) 100 mg Q12HR PO 05/13/17 13:00 05/13/17 21:54 Assessment/Plan Problem List: (1) induced hypertension, antepartum ICD Codes: O13.9 - Gestational [-induced] hypertension without significant proteinuria, unspecified trimester Status: Acute (2) Edema ICD Codes: R60.9 - Edema, unspecified Status: Acute (3) delivery delivered ICD Codes: O82 - Encounter for delivery without indication Status: Acute Assessment and Plan POD#2, s/p cd, preeclampsia, off Mag., feeling better, no H/A, visual disturbance. continue post op care, IS Discharge Planning Does not meet criteria Attending Attestation pt seen by Cat Pretty MD May 14, 2017 08:35
[2017-05-14] MEDS: LABETALOL HCL 100 MG TAB PO SCH ×2 (08:58→22:42)
[2017-05-14] MEDS: SODIUM CHLORIDE 0.9% FLUSH 5 ML FLUSH IV FLUSH SCH (17:45)
[2017-05-15] VITALS (10 sets, daily range): BP systolic 133–176; BP diastolic 77–104; PULSE 76–92; RESP 17–20; TEMP 98.8
[2017-05-15] MEDS: oxyCODONE/ACETAMINOPHEN 5 MG/325 MG TAB PO PRN ×5 (02:56→20:59)
[2017-05-15] MEDS: SIMETHICONE 80 MG CHEWABLE TAB PO PRN ×2 (06:10→11:40)
[2017-05-15] MEDS: IBUPROFEN 600 MG TAB PO PRN ×3 (06:11→20:58)
[2017-05-15] MEDS: DOCUSATE SODIUM 100 MG CAP PO PRN (06:11)
--- NOTE | 2017-05-15 08:03 | HHI.OB ---
Subjective Post Operative Day: 3 Remarks Doing well Pain is well controlled Baby is doing well Ready to go home Objective Vitals/I&O Vital Signs Date Time Temp Pulse Resp B/P (MAP) Pulse Ox O2 Delivery O2 Flow Rate FiO2 05/14/17 20:40 84 144/83 (103) 05/14/17 20:40 98.1 05/14/17 12:30 131/86 (101) 05/14/17 12:30 98 05/14/17 09:00 98.7 05/14/17 08:00 100.0 70 17 123/88 (100) Result Diagram: 05/13/1751105/13/17511 Objective Remarks GENERAL: Well-nourished, well-developed patient. CARDIOVASCULAR: Regular rate and rhythm without murmurs, gallops, or rubs. RESPIRATORY: Breath sounds equal bilaterally. No accessory muscle use. ABDOMEN/GI: Abdomen soft, non-tender, bowel sounds present. Incision: Clean, dry and intact. Fundus: Firm, non-tender at umbilicus. GENITOURINARY: Light to moderate bleeding. EXTREMITIES: No cyanosis or edema, non-tender, without signs of DVT. Medications and IVs Current Medications Medications (Trade) Dose Ordered Sig/Rafi Route Start Time Stop Time Status Last Admin (NS Flush) 2 ml UNSCH PRN IV FLUSH 05/11/17 14:45 (NS Flush) 2 ml BID IV FLUSH 05/11/17 21:00 05/14/17 17:45 (Calcium Gluconate Inj) 1 gm UNSCH PRN IV PUSH 05/11/17 14:45 (Tylenol) 650 mg Q4H PRN PO 05/11/17 14:45 05/12/17 16:09 (Zofran Inj) 4 mg Q6H PRN IV PUSH 05/11/17 14:45 (Colace) 100 mg BID PRN PO 05/11/17 14:45 05/15/17 06:11 (Ambien) 5 mg HS PRN PO 05/11/17 14:45 05/11/17 21:26 (Mag-Al Plus Susp Liq) 30 ml Q6H PRN PO 05/11/17 15:00 (Mylicon Chew) 80 mg QID PRN PO 05/12/17 20:00 05/15/17 06:10 (Motrin) 600 mg Q6H PRN PO 05/12/17 20:00 05/15/17 06:11 (Percocet 5-325 Mg) 1 tab Q4H PRN PO 05/12/17 20:00 05/13/17 17:26 (Percocet 5-325 Mg) 2 tab Q4H PRN PO 05/12/17 20:00 05/15/17 07:13 (Trandate) 100 mg Q12HR PO 05/13/17 13:00 05/14/17 22:42 Assessment/Plan Problem List: (1) induced hypertension, antepartum ICD Codes: O13.9 - Gestational [-induced] hypertension without significant proteinuria, unspecified trimester Status: Acute (2) Edema ICD Codes: R60.9 - Edema, unspecified Status: Acute (3) delivery delivered ICD Codes: O82 - Encounter for delivery without indication Status: Acute Assessment and Plan POD #3 Doing well SP CS for severe preeclampsia Home today Discharge Planning Nadine Jaeger MD May 15, 2017 08:03
[2017-05-15] MEDS ORDERED: IBUP-232 PO (08:08)
[2017-05-15] MEDS ORDERED: LABE100T2 PO (08:08)
[2017-05-15] MEDS ORDERED: OXYC1TAB63 PO (08:08)
[2017-05-15] MEDS: LABETALOL HCL 100 MG TAB PO SCH (09:46)
[2017-05-15] MEDS ORDERED: NIFEdipine 10 MG CAP ONE (12:57)
[2017-05-15] MEDS ORDERED: CALCIUM GLUCONATE 10% 1 GM/10 ML VIAL IV PUSH PRN ×2 (13:45→14:30)
[2017-05-15] MEDS ORDERED: NIFEdipine 20 MG CAP PO PRN ×4 (14:00→15:00)
[2017-05-15] MEDS ORDERED: LACTATED RINGER'S 1000 ML INJ 1,000 ML IV SCH (14:00)
[2017-05-15] MEDS ORDERED: NIFEdipine 10 MG CAP PO PRN ×2 (14:00)
[2017-05-15] MEDS: LABETALOL HCL 200 MG TAB PO SCH (20:59)
[2017-05-15] MEDS ORDERED: LABETALOL HCL 200 MG TAB PO SCH (21:00)
--- NOTE | 2017-05-15 21:19 | HHI.PR ---
Objective Vital Signs Date Time Temp Pulse Resp B/P (MAP) Pulse Ox O2 Delivery O2 Flow Rate FiO2 05/15/17 16:00 158/87 (110) 05/15/17 13:30 145/83 (103) 05/15/17 12:50 165/98 (120) 05/15/17 12:50 165/98 (120) 05/15/17 12:05 81 176/104 (128) 05/15/17 11:45 78 161/100 (120) 05/15/17 11:13 81 18 161/97 (118) 05/15/17 09:42 76 18 156/83 (107) 05/15/17 08:00 98.8 92 17 134/84 (101) Result Diagram: 05/13/1751105/13/17511 Assessment and Plan Assessment and Plan POD #3 Having problems with her BP. Needed increased dose of labetolol. Will keep her til tomorrow Nadine Jaeger MD May 15, 2017 21:19
[2017-05-16] MEDS: oxyCODONE/ACETAMINOPHEN 5 MG/325 MG TAB PO PRN ×3 (01:02→10:35)
[2017-05-16 04:00] VITALS: BP 134/76; PULSE 76; RESP 18; TEMP 97.3
[2017-05-16] MEDS: DOCUSATE SODIUM 100 MG CAP PO PRN (05:27)
[2017-05-16] MEDS: IBUPROFEN 600 MG TAB PO PRN ×2 (05:28→11:44)
[2017-05-16 08:00] VITALS: BP 144/91; PULSE 76; RESP 20; TEMP 97.7
[2017-05-16] MEDS: LABETALOL HCL 200 MG TAB PO SCH (08:54)
[2017-05-16 11:40] VITALS: BP 154/97; PULSE 76
[2017-05-16 11:52] VITALS: BP 154/97
== END 2017-05-16 14:45 | disposition home or self-care (01) | DRG 766 ==
LOC: HOBED 13:42 → H2EA 15:09 → H2EB 05-12 12:15 → H2EA 05-13 05:18 → H1EA 05-13 17:32
PROVIDERS: ADMIT Obstetrics & Gynecology; ATTEND Obstetrics & Gynecology
PROC: 10D00Z1 Extraction of Products of Conception, Low, Open Approach (ICD-10-PCS; principal; 2017-05-12)
PROC: 3E0P7VZ Introduction of Hormone into Female Reproductive, Via Natural or Artificial Opening (ICD-10-PCS; 2017-05-12)
DX: O14.13 Severe pre-eclampsia, third trimester (principal); Z37.0 Single live birth; Z3A.35 35 weeks gestation of pregnancy
CPT/HCPCS: 59025; 76816; 76819; 76820; 80053; 81001; 82570; 84157; 84550; 85025; 85027; 86850; 86900; 86901; 88307; 90707; 94150; J0131; J0702; J2590; J3475; J7120

== ENCOUNTER 2017-05-21 16:11 | Emergency (ER) | payer BC, MEDICAID ==
[~2017-05-21] VITALS: Ht 152.4 cm; Wt 86.2 kg
[~2017-05-21 16:11] MED LIST: IBUP-232 PO; LABE100T2 PO; OXYC1TAB63 PO
[2017-05-21 16:46] VITALS: BP 148/89; PULSE 66
[2017-05-21 17:01] VITALS: BP 152/95; PULSE 65
[2017-05-21 17:16] VITALS: BP 162/90; PULSE 68
--- NOTE | 2017-05-21 17:28 | PD ---
HPI Chief Complaint elevated blood pressure, Date Seen: May 21, 2017 Time Seen: 17:15 Travel History International Travel<30 Days: No Contact w/Intl Traveler<30Days: No Known Affected Area: No History of Present Illness HPI Pt is a 26 y/o G1 now P1 s/p primary on 05/12/17 at 35 weeks secondary to preeclampsia with severe features. Pt was discharge on labetalol 100 mg bid and has been monitoring blood pressures at home. Over past 2 days, have ranged from 149-187/92-106. Pt reports mild headache today. She denies vision change , scotomata, ruq pain. She has some LE edema but states much improved since delivery. Pt denies problems with incision. History Past Medical History Medical History: Denies Significant Hx Obstetric History Obstetric History 05/12/17 primary LTCD at 35 wks for preeclampsia with severe features Past Surgical History Narrative Surgical Family History Family History: Negative Social History Alcohol Use: No Tobacco Use: No Substance Abuse: No Allergies-Medications (Allergen,Severity, Reaction): Coded Allergies: No Known Allergies (Unverified , 05/12/17) Home Meds Active Scripts Oxycodone-Acetaminophen (Oxycodone-Acetaminophen) 5-325 mg Tab, 1-2 TAB PO Q4H Y for PAIN SCALE 3 TO 5, #30 TAB Prov:Nadine Jaeger MD 05/15/17 Ibuprofen (Ibuprofen) 600 Mg Tab, 600 MG PO Q6H Y for CRAMPING, #30 TAB 1 Refill Prov:Nadine Jaeger MD 05/15/17 Labetalol (Labetalol) 100 Mg Tab, 100 MG PO Q12HR for high blood pressure, #60 TAB Prov:Nadine Jaeger MD 05/15/17 W/O Vit A W/ Fe Fumar (Citranatal [place]) 27-1-260 Mg Cap Prov:Todd Cárdenas MD 10/20/16 Review of Systems General / Constitutional: No: Fever, Weight Gain, Weight Loss, Chills, Other Eyes: No: Diploplia, Blurred Vision, Visual changes, Pain, Photophobia, Other HENT: Headaches Cardiovascular: No: Irregular Rhythm, Chest Pain or Discomfort, Palpitations, Tachycardia, Syncope, Varicosities, Edema, Cyanosis, Other Respiratory: No: Cough, Short of Breath, Wheezing, Other Gastrointestinal: No: Nausea, Vomiting, Diarrhea, Abdominal Pain, Hematemesis, Hematochezia, Constipation, Changes in Bowel Habits, Indigestion, Loss of Appetite, Other Genitourinary: No: Urgency, Frequency, Dysuria, Nocturia, Hematuria, Decreased Urinary Output, Oliguria, Hesitancy, Dribbling, Incontinence, Pelvic Pain, Dyspareunia, Discharge, Menorrhagia, Vaginal Bleeding, Other Musculoskeletal: Edema, No: Limited ROM, Weakness, Cramping, Pain, Other Skin: No Rash, No Itching, No Dryness, No Lumps, No Change in Pigmentation, No Change in Nails, No Alopecia, No Lesions, No Breast Lumps, No Breast Tenderness , No Breast Swelling, No Other Neurologic: No: Weakness, Dizziness, Syncope, Focal Abnormalities, Coordination Problem, Headache, Slurred Speech, Seizures, Other Psychiatric: No: Anxiety, Depression, Suicidal Ideations, Disorder of Thought, Mood Disorder, Substance Abuse, Homicidal Ideation, Other Endocrine: No: Heat Intolerance, Cold Intolerance, Polydipsia, Polyuria, Other Hematologic/Lymphatic: No Easy Bruising, No Lymph Node Enlargement, No Other Physical Exam 165/94, 148/89, 152/95, 162/67417/90, 147/93 Narrative GENERAL: Well-nourished, well-developed patient. SKIN: Warm and dry. HEAD: Normocephalic and atraumatic. EYES: No scleral icterus. No injection or drainage. ENT: No nasal drainage noted. Mucous membranes pink. Airway patent. NECK: Supple, trachea midline. No JVD. CARDIOVASCULAR: Regular rate and rhythm without murmurs, gallops, or rubs. RESPIRATORY: Breath sounds equal bilaterally. No accessory muscle use. BREASTS: Bilateral exam showed no masses , no retractions, no nipple discharge. ABDOMEN/GI: Abdomen soft, non-tender, bowel sounds present, no rebound, no guarding incision clean/dry/intact EXTREMITIES: No cyanosis or edema. BACK: Nontender without obvious deformity. No CVA tenderness. NEUROLOGICAL: Awake and alert. Motor and sensory grossly within normal limits. Five out of 5 muscle strength in all muscle groups. Normal speech. Data Data Vital Signs Reviewed: Yes Orders Orders Vital Signs (Adult) .ON ADMISSION (05/21/17 17:19) Urinalysis - C+S If Indicated (05/21/17 17:19) Cbc No Diff, Includes Plts (05/21/17 17:19) Comprehensive Metabolic Panel (05/21/17 17:19) Uric Acid (05/21/17 17:19) Labs Laboratory Tests Test 05/21/17 16:57 05/21/17 18:20 White Blood Count 9.0 TH/MM3 Red Blood Count 3.74 MIL/MM3 Hemoglobin 12.1 GM/DL Hematocrit 33.8 % Mean Corpuscular Volume 90.3 FL Mean Corpuscular Hemoglobin 32.4 PG Mean Corpuscular Hemoglobin Concent 35.9 % Red Cell Distribution Width 13.3 % Platelet Count 245 TH/MM3 Mean Platelet Volume 7.8 FL Blood Urea Nitrogen 20 MG/DL Creatinine 0.68 MG/DL Random Glucose 97 MG/DL Total Protein 6.3 GM/DL Albumin 2.8 GM/DL Calcium Level 8.6 MG/DL Uric Acid 6.5 MG/DL Alkaline Phosphatase 126 U/L Aspartate Amino Transf (AST/SGOT) 23 U/L Alanine Aminotransferase (ALT/SGPT) 39 U/L Total Bilirubin 0.2 MG/DL Sodium Level 141 MEQ/L Potassium Level 4.0 MEQ/L Chloride Level 108 MEQ/L Carbon Dioxide Level 25.7 MEQ/L Anion Gap 7 MEQ/L Estimat Glomerular Filtration Rate 106 ML/MIN Urine Color LIGHT-YELLOW Urine Turbidity HAZY Urine pH 6.5 Urine Specific [place] 1.011 Urine Protein 100 mg/dL Urine Glucose (UA) NEG mg/dL Urine Ketones NEG mg/dL Urine Occult Blood MOD Urine Nitrite NEG Urine Bilirubin NEG Urine Urobilinogen LESS THAN 2.0 MG/DL Urine Leukocyte Esterase MOD Urine RBC 5 /hpf Urine WBC 38 /hpf Urine Squamous Epithelial Cells 4 /hpf Urine Bacteria OCC /hpf Microscopic Urinalysis Comment CULTURE INDICATED MDM Medical Record Reviewed: Yes Narrative Course / MDM 26 y/o POD#9 s/p primary CD at 35 wks for severe pre-e PP elevated blood pressures (140s-160s/80s-90s) PIH labs stable from delivery admission; pt asymptomatic currently on labetalol 100 mg bid, advised pt to increase to 200 mg bid continue blood pressure checks at home--notify OB office if BPs persistently > 160/100, reduce blood pressure medication back to 100 mg bid if blood pressures consistently < 120/70. Plan d/c home increase labetalol to 200 mg bid keep OB appt tomorrow Diagnosis Diagnosis: Primary Impression: Severe pre-eclampsia Additional Impression: delivery delivered Disposition: 01 DISCHARGE HOME Condition: Stable Patient Instructions: Preeclampsia (ED) Devendra Ward MD May 21, 2017 17:28
[2017-05-21 17:41] LABS: HEMATOCRIT 33.8 % (35.0-46.0); MEAN CELL VOLUME 90.3 FL (80.0-100.0); MEAN CORPUSCULAR HEMOGLOBIN 32.4 PG (27.0-34.0); MEAN CORPUSCULAR HGB CONC 35.9 % (32.0-36.0); PLATELET COUNT 245 TH/MM3 (150-450); RED BLOOD COUNT 3.74 MIL/MM3 (4.00-5.30); RED CELL DISTRIBUTION WIDTH 13.3 % (11.6-17.2); REVIEW FLAG FINAL
[2017-05-21 17:46] VITALS: BP 149/90; PULSE 55
[2017-05-21 18:07] LABS: ALT (GPT) 39 U/L (10-53); ANION GAP 7 MEQ/L (5-15); AST (GOT) 23 U/L (15-37); BICARBONATE 25.7 MEQ/L (21.0-32.0); BLOOD UREA NITROGEN 20 MG/DL (7-18); CHLORIDE 108 MEQ/L (98-107); GLOMERULAR FILTRATION RATE 106 ML/MIN (>89); SODIUM (NA) 141 MEQ/L (136-145); URIC ACID 6.5 MG/DL (2.6-6.0)
[2017-05-21 18:10] LABS: ALKALINE PHOSPHATASE 126 U/L (45-117); TOTAL BILIRUBIN ADULT 0.2 MG/DL (0.2-1.0)
[2017-05-21 18:15] VITALS: BP 147/93; PULSE 64
[2017-05-21 18:44] LABS: BACTERIA, URINE OCC /hpf; BLOOD, URINE MOD (NEG); COMMENT (UR) CULTURE INDICATED; CULTURE IF INDICATED CULTURE INDICATED; GLUCOSE,URINE NEG (NEG); KETONE, URINE NEG (NEG); NITRITE,URINE NEG (NEG); PH, URINE 6.5 (5.0-8.5); SQUAMOUS EPITHELIAL CELL URINE 4 /hpf (0-5); URINE COLOR LIGHT-YELLOW (YELLW/STRAW)
== END 2017-05-21 19:02 | disposition home or self-care (01) ==
LOC: HOBED 16:11
DX: O14.15 Severe pre-eclampsia, complicating the puerperium (principal)
CPT/HCPCS: 36415; 80053; 81001; 84550; 85027; 87086; 99283

== ENCOUNTER 2017-05-25 22:21 | Emergency (ER) | payer BC, MEDICAID ==
[~2017-05-25] VITALS: Ht 152.4 cm; Wt 87.0 kg
[2017-05-25 22:22] VITALS: BP 160/88; PULSE 72; RESP 16; TEMP 98.2; O2SAT 97
[2017-05-25] MEDS ORDERED: predniSONE 50 MG TAB PO ONE (23:00)
[2017-05-25] MEDS ORDERED: diphenhydrAMINE HCL 50 MG/ML VIAL IV PUSH ONE (23:00)
--- NOTE | 2017-05-25 23:01 | PD ---
HPI Chief Complaint: Allergic/Adverse Reaction Time Seen by Provider: 22:42 Travel History International Travel<30 days: No Contact w/Intl Traveler<30days: No Traveled to known affect area: No History of Present Illness HPI 27yo F with PMH of preeclampsia presents to the ED with c/o generalized urticaria that started around 30 minutes ago. Denies any chest pain, sob, lip or tongue swelling, throat swelling, n/v, abdominal pain. Urticaria is itching and pt does not remember eating anything new. Pt just gave 05/12/17. PFSH Social History Alcohol Use: No Tobacco Use: No Allergies-Medications (Allergen,Severity, Reaction): Coded Allergies: No Known Allergies (Unverified , 05/25/17) Reported Meds & Prescriptions Reported Meds & Active Scripts Active Citranatal [place] ( W/O Vit A W/ Fe Fumar) 27-1-260 Mg Cap Reported Labetalol (Labetalol HCl) 200 Mg Tab 200 Mg PO BID Review of Systems Except as stated in HPI: all other systems reviewed are Neg Physical Exam Narrative GENERAL: 27yo F in mild distress. SKIN: Diffused urticaria in face, body and back. HEAD: Atraumatic. Normocephalic. EYES: Pupils equal and round. No scleral icterus. No injection or drainage. ENT: Throat: Clear. Uvula midline and not swollen. NECK: Trachea midline. No JVD. CARDIOVASCULAR: Regular rate and rhythm. No murmur appreciated. RESPIRATORY: No accessory muscle use. Clear to auscultation. Breath sounds equal bilaterally. GASTROINTESTINAL: Abdomen soft, non-tender, nondistended. MUSCULOSKELETAL: No obvious deformities. No clubbing. No cyanosis. No edema. NEUROLOGICAL: Awake and alert. No obvious cranial nerve deficits. Motor grossly within normal limits. Normal speech. PSYCHIATRIC: Appropriate mood and affect; insight and judgment normal. Data Data Last Documented VS Vital Signs Date Time Temp Pulse Resp B/P (MAP) Pulse Ox O2 Delivery O2 Flow Rate FiO2 05/25/17 22:22 98.2 72 16 160/88 (112) 97 Room Air Orders Orders Diphenhydramine Inj (Benadryl Inj) (05/25/17 23:00) Prednisone (Deltasone) (05/25/17 23:00) [facility] Medical Decision Making Medical Screen Exam Complete: Yes Emergency Medical Condition: Yes Differential Diagnosis Allergic reaction Narrative Course 27yo F with diffuse urticaria about half an hour prior to arrival. Denies any sob, chest pain, n/v, abdominal pain or throat swelling. No other symptoms. Pt recently gave and wants to breast feed so I discussed risk and benefits and decided on IV diphenhydramine and PO prednisone. 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 I informed her that I will write her a prescription for a few days of the medication and she will discuss with her credit verifier whether she will breast feed or not take the medications. Pt has been observed in the ED and urticaria has improved. Still no sob. Saturating at 98% on RA. Diagnosis Primary Impression: Allergic reaction Qualified Codes: T78.40XA - Allergy, unspecified, initial encounter Patient Instructions: General Instructions Departure Forms: Tests/Procedures Additional Instructions: Please follow up with your credit verifier and NICU staff on whether you can breast feed. You were given prednisone 50mg PO and diphenhydramine 50mg IV at 11pm on 05/26/17. Return to the ED if symptoms worsen. Med/Other Pt SpecificInfo: Prescription(s) given Scripts Epinephrine Inj (Epipen 2-Iraj Inj) 0.3 Mg/0.3 Ml Pfpen 0.3 MG IM ONCE Y for ALLERGIC REACTION, #1 PACK 0 Refills Prov: Brittny Drew DO 05/26/17 Diphenhydramine (Diphenhydramine) 25 Mg Cap 25 MG PO Q6H Y for ALLERGIES for 3 Days, #12 CAP 0 Refills Prov: Brittny Drew DO 05/26/17 Prednisone (Deltasone) 20 Mg Tab 20 MG PO BID for 5 Days, #10 TAB 0 Refills Prov: Brittny Drew DO 05/26/17 Disposition: 01 DISCHARGE HOME Condition: Stable Brittny Drew DO May 25, 2017 23:01
--- NOTE | 2017-05-25 23:01 | PD ---
HPI Chief Complaint: Allergic/Adverse Reaction Time Seen by Provider: 22:42 Travel History International Travel<30 days: No Contact w/Intl Traveler<30days: No Traveled to known affect area: No History of Present Illness HPI 27yo F with PMH of preeclampsia presents to the ED with c/o generalized urticaria that started around 30 minutes ago. Denies any chest pain, sob, lip or tongue swelling, throat swelling, n/v, abdominal pain. Urticaria is itching and pt does not remember eating anything new. Pt just gave 05/12/17. PFSH Social History Alcohol Use: No Tobacco Use: No Allergies-Medications (Allergen,Severity, Reaction): Coded Allergies: No Known Allergies (Unverified , 05/25/17) Reported Meds & Prescriptions Reported Meds & Active Scripts Active Citranatal [place] ( W/O Vit A W/ Fe Fumar) 27-1-260 Mg Cap Reported Labetalol (Labetalol HCl) 200 Mg Tab 200 Mg PO BID Review of Systems Except as stated in HPI: all other systems reviewed are Neg Physical Exam Narrative GENERAL: 27yo F in mild distress. SKIN: Diffused urticaria in face, body and back. HEAD: Atraumatic. Normocephalic. EYES: Pupils equal and round. No scleral icterus. No injection or drainage. ENT: Throat: Clear. Uvula midline and not swollen. NECK: Trachea midline. No JVD. CARDIOVASCULAR: Regular rate and rhythm. No murmur appreciated. RESPIRATORY: No accessory muscle use. Clear to auscultation. Breath sounds equal bilaterally. GASTROINTESTINAL: Abdomen soft, non-tender, nondistended. MUSCULOSKELETAL: No obvious deformities. No clubbing. No cyanosis. No edema. NEUROLOGICAL: Awake and alert. No obvious cranial nerve deficits. Motor grossly within normal limits. Normal speech. PSYCHIATRIC: Appropriate mood and affect; insight and judgment normal. Data Data Last Documented VS Vital Signs Date Time Temp Pulse Resp B/P (MAP) Pulse Ox O2 Delivery O2 Flow Rate FiO2 05/25/17 22:22 98.2 72 16 160/88 (112) 97 Room Air Orders Orders Diphenhydramine Inj (Benadryl Inj) (05/25/17 23:00) Prednisone (Deltasone) (05/25/17 23:00) [facility] Medical Decision Making Medical Screen Exam Complete: Yes Emergency Medical Condition: Yes Differential Diagnosis Allergic reaction Narrative Course 27yo F with diffuse urticaria about half an hour prior to arrival. Denies any sob, chest pain, n/v, abdominal pain or throat swelling. No other symptoms. Pt recently gave and wants to breast feed so I discussed risk and benefits and decided on IV diphenhydramine and PO prednisone. 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 I informed her that I will write her a prescription for a few days of the medication and she will discuss with her warhead maintenance specialist whether she will breast feed or not take the medications. Pt has been observed in the ED and urticaria has improved. Still no sob. Saturating at 98% on RA. Diagnosis Primary Impression: Allergic reaction Qualified Codes: T78.40XA - Allergy, unspecified, initial encounter Patient Instructions: General Instructions Departure Forms: Tests/Procedures Additional Instructions: Please follow up with your warhead maintenance specialist and NICU staff on whether you can breast feed. You were given prednisone 50mg PO and diphenhydramine 50mg IV at 11pm on 05/26/17. Return to the ED if symptoms worsen. Med/Other Pt SpecificInfo: Prescription(s) given Scripts Epinephrine Inj (Epipen 2-Iraj Inj) 0.3 Mg/0.3 Ml Pfpen 0.3 MG IM ONCE Y for ALLERGIC REACTION, #1 PACK 0 Refills Prov: Brittny Drew DO 05/26/17 Diphenhydramine (Diphenhydramine) 25 Mg Cap 25 MG PO Q6H Y for ALLERGIES for 3 Days, #12 CAP 0 Refills Prov: Brittny Drew DO 05/26/17 Prednisone (Deltasone) 20 Mg Tab 20 MG PO BID for 5 Days, #10 TAB 0 Refills Prov: Brittny Drew DO 05/26/17 Disposition: 01 DISCHARGE HOME Condition: Stable Brittny Drew DO May 25, 2017 23:01
--- NOTE | 2017-05-25 23:01 | PD ---
HPI Chief Complaint: Allergic/Adverse Reaction Time Seen by Provider: 22:42 Travel History International Travel<30 days: No Contact w/Intl Traveler<30days: No Traveled to known affect area: No History of Present Illness HPI 27yo F with PMH of preeclampsia presents to the ED with c/o generalized urticaria that started around 30 minutes ago. Denies any chest pain, sob, lip or tongue swelling, throat swelling, n/v, abdominal pain. Urticaria is itching and pt does not remember eating anything new. Pt just gave 05/12/17. PFSH Social History Alcohol Use: No Tobacco Use: No Allergies-Medications (Allergen,Severity, Reaction): Coded Allergies: No Known Allergies (Unverified , 05/25/17) Reported Meds & Prescriptions Reported Meds & Active Scripts Active Citranatal [place] ( W/O Vit A W/ Fe Fumar) 27-1-260 Mg Cap Reported Labetalol (Labetalol HCl) 200 Mg Tab 200 Mg PO BID Review of Systems Except as stated in HPI: all other systems reviewed are Neg Physical Exam Narrative GENERAL: 27yo F in mild distress. SKIN: Diffused urticaria in face, body and back. HEAD: Atraumatic. Normocephalic. EYES: Pupils equal and round. No scleral icterus. No injection or drainage. ENT: Throat: Clear. Uvula midline and not swollen. NECK: Trachea midline. No JVD. CARDIOVASCULAR: Regular rate and rhythm. No murmur appreciated. RESPIRATORY: No accessory muscle use. Clear to auscultation. Breath sounds equal bilaterally. GASTROINTESTINAL: Abdomen soft, non-tender, nondistended. MUSCULOSKELETAL: No obvious deformities. No clubbing. No cyanosis. No edema. NEUROLOGICAL: Awake and alert. No obvious cranial nerve deficits. Motor grossly within normal limits. Normal speech. PSYCHIATRIC: Appropriate mood and affect; insight and judgment normal. Data Data Last Documented VS Vital Signs Date Time Temp Pulse Resp B/P (MAP) Pulse Ox O2 Delivery O2 Flow Rate FiO2 05/25/17 22:22 98.2 72 16 160/88 (112) 97 Room Air Orders Orders Diphenhydramine Inj (Benadryl Inj) (05/25/17 23:00) Prednisone (Deltasone) (05/25/17 23:00) [facility] Medical Decision Making Medical Screen Exam Complete: Yes Emergency Medical Condition: Yes Differential Diagnosis Allergic reaction Narrative Course 27yo F with diffuse urticaria about half an hour prior to arrival. Denies any sob, chest pain, n/v, abdominal pain or throat swelling. No other symptoms. Pt recently gave and wants to breast feed so I discussed risk and benefits and decided on IV diphenhydramine and PO prednisone. 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 I informed her that I will write her a prescription for a few days of the medication and she will discuss with her congressional aide whether she will breast feed or not take the medications. Pt has been observed in the ED and urticaria has improved. Still no sob. Saturating at 98% on RA. Diagnosis Primary Impression: Allergic reaction Qualified Codes: T78.40XA - Allergy, unspecified, initial encounter Patient Instructions: General Instructions Departure Forms: Tests/Procedures Additional Instructions: Please follow up with your congressional aide and NICU staff on whether you can breast feed. You were given prednisone 50mg PO and diphenhydramine 50mg IV at 11pm on 05/26/17. Return to the ED if symptoms worsen. Med/Other Pt SpecificInfo: Prescription(s) given Scripts Epinephrine Inj (Epipen 2-Iraj Inj) 0.3 Mg/0.3 Ml Pfpen 0.3 MG IM ONCE Y for ALLERGIC REACTION, #1 PACK 0 Refills Prov: Brittny Drew DO 05/26/17 Diphenhydramine (Diphenhydramine) 25 Mg Cap 25 MG PO Q6H Y for ALLERGIES for 3 Days, #12 CAP 0 Refills Prov: Brittny Drew DO 05/26/17 Prednisone (Deltasone) 20 Mg Tab 20 MG PO BID for 5 Days, #10 TAB 0 Refills Prov: Brittny Drew DO 05/26/17 Disposition: 01 DISCHARGE HOME Condition: Stable Brittny Drew DO May 25, 2017 23:01
[2017-05-25] MEDS ORDERED: LABE200T2 PO (23:05)
[2017-05-26] MEDS ORDERED: DIPH25CA PO (01:00)
[2017-05-26] MEDS ORDERED: PRED-503 PO (01:00)
[2017-05-26] MEDS ORDERED: EPIP0.3I IM (01:00)
== END 2017-05-26 01:37 | disposition home or self-care (01) ==
LOC: NEPD 22:21
DX: T78.40XA Allergy, unspecified, initial encounter (principal)
CPT/HCPCS: 96374; 99284; J1200; J7512